=== PATIENT | male | born 1965 | race African-American/Black ===

== ENCOUNTER 2023-09-29 07:34 | Outpatient (CLI) | payer BC | END 2023-09-29 07:35 | disposition home or self-care (01) | LOC: BICCT 07:34 | PROVIDERS: ATTEND Nurse Practitioner Family | DX: Z12.2 Encounter for screening for malignant neoplasm of respiratory organs (principal); F17.210 Nicotine dependence, cigarettes, uncomplicated | CPT/HCPCS: 71271 ==

== ENCOUNTER 2025-08-22 12:52 | Outpatient (CLI) | payer BC | END 2025-08-22 12:53 | disposition home or self-care (01) | LOC: BICCT 12:52 | PROVIDERS: ATTEND Nurse Practitioner Family | DX: Z12.2 Encounter for screening for malignant neoplasm of respiratory organs (principal); F17.200 Nicotine dependence, unspecified, uncomplicated | CPT/HCPCS: 71271 ==